=== PATIENT | female | born 1965 | race Caucasian/White ===

== ENCOUNTER 2018-10-01 10:31 | Day surgery (SDC) | payer OTHER ==
[2018-09-26 16:24] VITALS: BP 133/85
[~2018-10-01] VITALS: Ht 167.6 cm; Wt 83.0 kg
[~2018-10-01 10:31] MED LIST: BUPIVACAINE/PF 0.25% ONE; None at this Time
[2018-10-01] MEDS ORDERED: EPINEPHRINE 1 MG/ML, 1ML ONE (10:42)
[2018-10-01] MEDS ORDERED: FLUORESCEIN SODIUM 500 MG/5 ML ONE (10:42)
[2018-10-01] MEDS ORDERED: BUPIVACAINE/PF 0.25% ONE (10:42)
[2018-10-01] MEDS ORDERED: LACTATED RINGERS 1,000 ML IV SCH (10:57)
[2018-10-01 11:01] VITALS: BP 133/85
[2018-10-01 11:54] LABS: HCG UR SG 1.021 (1.003-1.030)
[2018-10-01] MEDS ORDERED: MIDAZOLAM 1 MG/ML, 2ML ONE (12:13)
[2018-10-01] MEDS ORDERED: CEFAZOLIN 1,000 MG ONE (12:22)
[2018-10-01] MEDS ORDERED: ONDANSETRON 2MG/ML, 2ML ONE (12:22)
[2018-10-01] MEDS ORDERED: PROPOFOL 10 MG/ML, 20ML ONE (12:22)
[2018-10-01] MEDS ORDERED: SUCCINYLCHOLINE 20 MG/ML, 10ML ONE (12:22)
[2018-10-01] MEDS ORDERED: DEXAMETHASONE 4 MG/ML, 1ML ONE (12:22)
[2018-10-01] MEDS ORDERED: ROCURONIUM 10MG/ML,5ML ONE (12:22)
[2018-10-01] MEDS ORDERED: FENTANYL PF 250 MCG/5ML ONE (12:26)
[2018-10-01] MEDS ORDERED: GABAPENTIN 300 MG CAPSULE PO ONE (12:30)
[2018-10-01] MEDS ORDERED: SCOPOLAMINE PATCH, 1.5MG PATCH.TD72 TD ONE (12:30)
[2018-10-01] MEDS ORDERED: ACETAMINOPHEN 500 MG TABLET PO ONE (12:30)
[2018-10-01] MEDS ORDERED: BUPIVACAINE/PF-EPI 0.25% 1:200K INFIL ONE (12:50)
[2018-10-01] MEDS ORDERED: DIPHENHYDRAMINE 50 MG/ML, 1ML IVPush PRN (13:00)
[2018-10-01] MEDS ORDERED: METOPROLOL 1 MG/ML, 5ML IV PRN (13:00)
[2018-10-01] MEDS ORDERED: MEPERIDINE/PF 25MG/0.5ML IVPush PRN (13:00)
[2018-10-01] MEDS ORDERED: hydrALAzine 20 MG/ML, 1ML IV PRN (13:00)
[2018-10-01] MEDS ORDERED: OXYcodone 5 MG/5 ML ORAL.SOL UDC PO PRN (13:00)
[2018-10-01] MEDS ORDERED: HYDROmorphone 2 MG/ML, 1ML IVPush PRN (13:00)
[2018-10-01] MEDS ORDERED: LABETALOL 5MG/ML, 20ML IV PRN (13:00)
[2018-10-01] MEDS ORDERED: FENTANYL PF 100 MCG/2ML IV PRN (13:00)
[2018-10-01] MEDS ORDERED: PROMETHAZINE 25 MG/ML, 1ML IV PRN (13:00)
[2018-10-01] MEDS ORDERED: PROCHLORPERAZINE 5 MG/ML, 2ML IV PRN (13:00)
[2018-10-01] MEDS ORDERED: OXYcodone 5 MG/5 ML ORAL.SOL UDC ONE (13:53)
== END 2018-10-01 15:55 | disposition home or self-care (01) ==
LOC: OUT 10:31
PROVIDERS: ATTEND Obstetrics & Gynecology
DX: D25.0 Submucous leiomyoma of uterus (principal); N92.0 Excessive and frequent menstruation with regular cycle; Z98.890 Other specified postprocedural states
CPT/HCPCS: 36415; 58552; 81025; 86850; 86900; 88307; J0171; J0330; J0690; J1100; J2250; J2405; J2704; J3010; J3490; J7120